=== PATIENT | female | born 1990 ===

== ENCOUNTER 2018-04-21 13:10 | Emergency (ER) | payer MEDICAID, OTHER ==
[2018-04-21 13:10] VITALS: BMI 21.1
[2018-04-21 13:53] VITALS: BP 112/78; PULSE 75; RESP 18; TEMP 98.1; O2SAT 98
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
--- NOTE | 2018-04-21 16:54 | RAD ---
Date of service: 04/21/2018 PROCEDURE: Radiographs of the Chest and Left Ribs. HISTORY: INJURY/PAIN COMPARISON: None available. TECHNIQUE: Frontal radiograph of the chest and multiple oblique radiographs of the left ribs were obtained. FINDINGS: LEFT RIBS: No fracture or focal lesion visualized. LUNGS: Clear. PLEURA: No pneumothorax or pleural fluid. CARDIOVASCULAR: Normal cardiac size. No pulmonary vascular congestion. No aortic atherosclerotic calcification present OTHER FINDINGS: None. IMPRESSION: Unremarkable radiographs of the chest and left ribs. No left rib fracture.
== END 2018-04-21 16:37 | disposition home or self-care (01) ==
LOC: ED 13:10
DX: S20.212A Contusion of left front wall of thorax, initial encounter (principal); Y04.0XXA Assault by unarmed brawl or fight, initial encounter
CPT/HCPCS: 71101; 81025; 96372; 99282; J1885